=== PATIENT | male | born 1955 | race Caucasian/White ===

== ENCOUNTER → 2024-01-28 | Outpatient (CLI) | payer OTHER, SELFPAY ==
[2024-01-28 13:48] LABS: Basophils % (Auto) 0 % (0-2.5); Eosinophils # (Auto) 0.2 Thou/mm3 (0.0-0.5); Eosinophils % (Auto) 2 % (0-10); Hematocrit 46.4 % (41.0-53.0); Hemoglobin 15.2 g/dL (13.5-16.0); Immature Granulocytes % (Auto) 1 % (0-0); Immature Granulocytes Auto 0.07 Thou/mm3 (0.00-0.00); Lymphocytes # (Auto) 1.3 Thou/mm3 (1.0-4.8); Lymphocytes % (Auto) 14 % (10-50); Mean Corpuscular HGB Conc 32.8 g/dl (31.0-37.0); Mean Corpuscular Hemoglobin 29.3 pg (25.0-35.0); Mean Corpuscular Volume 89 fL (80-100); Monocytes # (Auto) 0.7 Thou/mm3 (0.0-0.8); Monocytes % (Auto) 7 % (0-12); Neutrophils # (Auto) 7.3 Thou/mm3 (1.8-7.7); Neutrophils % (Auto) 76 % (37-80); Nucleated Red Blood Cell % 0 /100 WBC (0); Platelet Count 184 Thou/mm3 (140-440); RDW Standard Deviation 46.5 fL (35.1-43.9); Red Blood Count 5.19 Miln/mm3 (4.50-5.90); White Blood Count 9.5 Thou/mm3 (3.8-10.6)
[2024-01-28 13:58] LABS: Glucose Estimated Average 108 mg/dL (80-131); Hemoglobin A1C 5.4 % Hgb (4.8-6.0)
[2024-01-28 14:30] LABS: Alanine Aminotransferase 11 U/L (10-49); Albumin, Serum 4.3 gm/dL (3.4-4.8); Albumin/Globulin Ratio 1.7 (1.2-2.2); Alkaline Phosphatase 172 U/L (46-116); Anion Gap 5 (7-16); Aspartate Amino Transferase 20 U/L (0-34); BUN/Creatinine Ratio 16 Ratio (12-20); Bilirubin,Total 0.8 mg/dL (0.3-1.2); Blood Urea Nitrogen 16 mg/dL (9-23); Calcium 9.6 mg/dL (8.3-10.6); Calcium (Corrected) 9.6 mg/dL (8.5-10.1); Carbon Dioxide 28.1 mMol/L (20.0-31.0); Cardiac Risk Estimate 3.6 RATIO (4.0-6.7); Chloride 106 mMol/L (98-107); Cholesterol 156 mg/dL (132-200); Free T4 (Free Thyroxine) 1.08 ng/dL (0.89-1.76); Globulin 2.6 gm/dL (2.3-3.5); Glucose 97 mg/dL (74-106); HDL Cholesterol 43 mg/dL (40-60); LDL Cholesterol,Calculated 87 mg/dL (0-130); Osmolality,Calculated 278 (275-295); Potassium 4.2 mMol/L (3.4-5.1); Sodium 139 mMol/L (136-145); Thyroid Stimulating Hormone 3.59 uIU/mL (0.55-4.78); Total Protein 6.9 gm/dL (5.7-8.2); Triglycerides 130 mg/dL (30-150); eGFR > 60 See Note
== END | disposition home or self-care (01) ==
LOC: COPL 12:59
PROVIDERS: PCP Registered Nurse Community Health; Referring Provider Registered Nurse Community Health; Visit Provider Registered Nurse Community Health
DX: E78.2 Mixed hyperlipidemia (principal); I10 Essential (primary) hypertension; I63.9 Cerebral infarction, unspecified
CPT/HCPCS: 36415; 80053; 80061; 83036; 84439; 84443; 85025

== ENCOUNTER 2024-08-06 23:09 | Emergency (ER) | payer OTHER, MEDICAID, SELFPAY ==
[2024-08-06 23:14] VITALS: BP 110/72; PULSE 99; RESP 20; TEMP 36.8; O2SAT 96
[2024-08-06 23:40] VITALS: PULSE 100; RESP 18; O2SAT 93
[2024-08-06 23:45] VITALS: BMI 35.3
--- NOTE | 2024-08-07 00:46 | XR_ITS ---
Examination: AP chest single view Technique 1 portable sitting AP chest single view Date and time: August 07, 2024 0105 hours Comparison July 15, 2022 Medications 1 onset chest pain today. FINDINGS: Mild pneumonia medial right base and lateral left base Mild prominence left ventricle Moderate vascular congestion Moderate osteopenia IMPRESSION: Mild bibasilar pneumonia
[2024-08-07 01:00] LABS: Basophils % (Auto) 0 % (0-2.5); Eosinophils # (Auto) 0.3 Thou/mm3 (0.0-0.5); Eosinophils % (Auto) 2 % (0-10); Hematocrit 39.8 % (41.0-53.0); Hemoglobin 13.6 g/dL (13.5-16.0); Immature Granulocytes % (Auto) 0 % (0-0); Immature Granulocytes Auto 0.04 Thou/mm3 (0.00-0.00); Lymphocytes # (Auto) 1.4 Thou/mm3 (1.0-4.8); Lymphocytes % (Auto) 14 % (10-50); Mean Corpuscular HGB Conc 34.2 g/dl (31.0-37.0); Mean Corpuscular Hemoglobin 29.2 pg (25.0-35.0); Mean Corpuscular Volume 85 fL (80-100); Monocytes # (Auto) 0.7 Thou/mm3 (0.0-0.8); Monocytes % (Auto) 7 % (0-12); Neutrophils # (Auto) 7.8 Thou/mm3 (1.8-7.7); Neutrophils % (Auto) 77 % (37-80); Nucleated Red Blood Cell % 0 /100 WBC (0); Platelet Count 168 Thou/mm3 (140-440); RDW Standard Deviation 44.5 fL (35.1-43.9); Red Blood Count 4.66 Miln/mm3 (4.50-5.90); White Blood Count 10.2 Thou/mm3 (3.8-10.6)
[2024-08-07 01:15] LABS: Partial Thromboplastin Time 24.5 Seconds (22.0-36.0)
--- NOTE | 2024-08-07 01:22 | PD.EDARRY ---
ED Arrhythmia Palp. RME/HPI General Chief Complaint: Arrhythmia/Palpitations Stated Complaint: PALPATATIONS Time Seen by Provider: 08/06/24 23:53 Arrival date/time: 08/06/24 23:09 Limitations: no limitations RME / HPI RME / HPI narrative: Dr. Matthews's Main ED Evaluation: 68yo male with a history of COPD, NM, HTN, HLD, CAD s/p 6 stents placed BIBA from home presents to the ED for a chief complaint of palpitations. Patient states he woke up having palpitations that lasted for 15 minutes. Patient states his palpitations resolved after he took 2 tablets of nitroglycerin. Patient denies any chest pain, shortness of breath, fever, chills or any other associated symptoms. Patient is not on any oxygen at home. NKA. Related Data Home Medications ?Medication ?Instructions ?Recorded ?Confirmed atorvastatin 80 mg tablet 80 mg PO QDAY 10/11/17 09/06/23 clopidogrel 75 mg tablet 75 mg PO QDAY 10/11/17 09/06/23 aspirin 325 mg tablet 325 mg PO QDAY 04/21/19 09/06/23 multivitamin-ferrous 1 tab PO QDAY 05/01/19 09/06/23 fumarate-folic acid 18 mg-400 mcg tablet (Centrum) zinc 50 mg tablet 50 mg PO QDAY 05/01/19 09/06/23 montelukast 10 mg tablet 10 mg PO QDAY 04/06/20 09/06/23 (Singulair) bisacodyl 5 mg tablet 5 mg PO HS 07/04/21 09/06/23 cholecalciferol (vitamin D3) 25 25 mcg PO QDAY 07/04/21 09/06/23 mcg (1,000 unit) capsule (Vitamin D3) diphenhydramine HCl 25 mg capsule 25 mg PO HS 07/04/21 09/06/23 (Benadryl) nitroglycerin 0.4 mg sublingual 0.4 mg buccal Q15MIN PRN Chest Pain 07/04/21 09/06/23 tablet pantoprazole 40 mg tablet,delayed 40 mg PO DAILY 07/04/21 09/06/23 release sucralfate 1 gram tablet 1 g PO BID 07/04/21 09/06/23 budesonide-formoterol HFA 80 1 puff inhalation BID PRN ASTHMA 04/11/22 09/06/23 mcg-4.5 mcg/actuation aerosol inhaler (Symbicort) carbidopa ER 50 mg-levodopa 200 mg 1 tab PO TID 04/11/22 09/06/23 tablet,extended release memantine 5 mg tablet 5 mg PO BID 04/11/22 09/06/23 ropinirole 2 mg tablet 2 mg PO BID 04/11/22 09/06/23 finasteride 5 mg tablet 5 mg PO QDAY 09/06/23 09/06/23 tamsulosin 0.4 mg capsule 0.4 mg PO QHS 09/06/23 09/06/23 Allergies Allergy/AdvReac Type Severity Reaction Status Date / Time No Known Allergies Allergy Verified 09/06/23 10:17 Review of Systems Review of Systems Systems Reviewed: All systems reviewed, normal except as documented Past Medical History Past Medical History NEUROLOGIC: Positive Neurological Disorders, Transient Ischemic Attacks (TIA), Dementia, Parkinson's Disease, Seizures, Migraine and Head Trauma; Negative Cerebrovascular Accident, Alzheimer's Disease, Brain Tumor, Meningitis, Epilepsy, Multiple Sclerosis, Cerebral Palsy, Amyotrophic Lateral Sclerosis (ALS/Bhakti Gehrig's), Guillain-[place] Syndrome, Spina Bifida, Paralysis, Peripheral Neuropathy, Gilbert's Palsy, Subdural Hematoma, Spinal Cord Injury or Traumatic Brain Injury CARDIAC: Positive Cardiac Disorders, Myocardial Infarction, Cardiac Arrhythmia, Angina, Coronary Artery Disease, Hypercholesterolemia, Edema and Hypertension; Negative Atrial Fibrillation, Peripheral Vascular Disease, Aneurysm, Congestive Heart Failure, Congenital Heart Disease, Valvular Heart Disease, Rheumatic Fever, Cardiomyopathy, Pericarditis, Cellulitis, Deep Vein Thrombosis, Hypotension or Varicose Veins RESPIRATORY: Positive Chronic Obstructive Pulmonary Disease (COPD) and Asthma; Negative Bronchitis, Emphysema, Pneumonia, Pulmonary Fibrosis, Cystic Fibrosis, Tuberculosis, Pulmonary Embolism, Pulmonary Edema or Sleep Apnea GASTROINTESTINAL: Positive Gastrointestinal Disorders and Obesity; Negative Hepatitis, Cirrhosis, Pancreatitis, Celiac Disease, Gall Bladder Disease, Gastrointestinal Bleed, Esophageal Varices, Dwyer's Esophagus, Colitis, Ulcerative Colitis, Diverticulitis, Diverticulosis, Ulcer, Irritable Bowel, Crohn's Disease, Obstructive Bowel, Hiatal Hernia, Hemorrhoids, Gastroesophageal Reflux Disease or Polyps GENITOURINARY: Positive Benign Prostatic Hyperplasia; Negative Genitourinary Disorders, Chronic Kidney Disease, Renal Disease, Kidney Stones, Polycystic Kidney Disease, Neurogenic Bladder, Inguinal Hernia or Dialysis REPRODUCTIVE: Negative Testicular Cancer MUSCULOSKELETAL: Positive Musculoskeletal Disorders, Arthritis and Fractures (pelvic); Negative Osteoporosis, Degenerative Disk Disease, Gout, Scoliosis, Fibromyalgia, Degenerative Joint Disease, Osteomyelitis or Poliovirus ENT: Positive Head Trauma; Negative Cataracts, Glaucoma or Deafness ENDOCRINE: Negative Endocrine Disorders, Diabetes Mellitus Type 1 or Diabetes Mellitus Type 2 HEMATOLOGIC: Negative Blood Disorders PSYCHO/SOCIAL: Positive Depression OTHER HISTORY: Positive Falls, MRSA and Chicken Pox; Negative Hospitalization (30 years ago, hospitalized for propane gas poisoning.), Autoimmune Disease, Down Syndrome, Developmental Delay, Shingles, Blood Transfusions, Blood Transfusion Reaction, Anesthesia Reactions, Chemotherapy, Radiation Therapy, Human Immunodeficiency Virus (HIV), Measles, Mumps, Rubella (Faroese Measles), Pertussis, Clostridium Difficile, Cancer or Testicular Cancer Family History FAMILY HISTORY: Positive Family Cardiac Disorders, Family Gastrointestinal Problems, Family Cancer and Family Surgery; Negative Family Psychiatric Problems, Family Respiratory Disorders or Family Anesthesia Reaction Surgical History SURGICAL: Positive Cardiac Surgery, Coronary Stent (X6), Angiogram, Tonsillectomy and Abdominal Surgery; Negative Pacemaker, Endocrine Surgery, Ear Surgery, Joint Replacement, Neurologic Surgery or Vasectomy Social History SMOKING STATUS: Never smoker SUBSTANCE USE: does not use ED Exam General Limitations: Present no limitations General appearance: Present alert and in no apparent distress Head Head exam: Present atraumatic Eye Eye exam: Present normal appearance, PERRL and EOMI ENT ENT exam: Present normal exam, normal oropharynx and mucous membranes moist Neck Neck exam: Present normal inspection, full ROM and trachea midline Chest Chest inspection: Present normal inspection and symmetric chest wall rise Respiratory Respiratory exam: Present other (mildly decreased air movement, no rales); Absent wheezes Cardiovascular Cardiovascular exam: Present regular rate, normal rhythm and normal heart sounds Abdominal Exam Abdominal exam: Present soft and normal bowel sounds Extremities Exam Extremities exam: Present normal inspection and full ROM Back Exam Back exam: Present normal inspection and full ROM Neurological Exam Neurological exam: Present alert, oriented X3 and CN II-XII intact Psychiatric Psychiatric exam: Present normal affect and normal mood Skin Skin exam: Present warm, dry, intact and normal color Course Course Course Narrative: CXR is ordered for determining the etiology of palpitations. Quality Measures none Orders Category Date Time Status [facility] STAT Care 08/07/24 00:46 Active Continuous Pulse Oximetry ONCE Care 08/07/24 00:46 Active EKG (ED ONLY) *Do not use* NOW Care 08/06/24 23:49 Completed Insert IV STAT Care 08/07/24 00:46 Active Urinary Catheter STAT Care 08/07/24 00:46 Active EKG (ED Only) Stat Exams 08/06/24 23:49 Ordered XR chest 1V portable Stat Exams 08/07/24 00:46 Taken B-Type Natriuretic Peptide Stat Lab 08/07/24 00:49 Received CBC Stat Lab 08/07/24 00:49 Completed Comprehensive Metabolic Panel Stat Lab 08/07/24 00:49 Received Lipase Stat Lab 08/07/24 00:49 Received Magnesium Stat Lab 08/07/24 00:49 Received Partial Thromboplastin Time Stat Lab 08/07/24 00:49 Completed Prothrombin Time with INR Stat Lab 08/07/24 00:49 Completed Troponin I Stat Lab 08/07/24 00:49 Received Oxygen Delivery NOW RT 08/07/24 00:46 Active Vital Signs Vital signs: Vital Signs Temperature 98.3 F 08/06/24 23:14 Pulse Rate 99 08/06/24 23:14 Respiratory Rate 20 08/06/24 23:14 Blood Pressure 110/72 08/06/24 23:14 Pulse Oximetry (%) 96 08/06/24 23:14 Oxygen Delivery Method Room Air 08/06/24 23:14 Arrhythmia/Palpitations MDM Narrative MDM Narrative:: Scribe Attestation: 08/07/24 Swapna Spears am scribing for and in the presence of Dr. Matthews. Patient data External records reviewed:: [facility] previous records (Per chart review, patient was admitted here on 10/18/21 for chest pain.) Clinical information provided by:: patient Social determinants that could affect healthcare access:: none Patient has the following chronic illnesses:: COPD, NM, HTN, HLD, CAD s/p 6 stents placed How is presenting disease/condition affected by chronic disease/condition?: exacerbated by Evaluation data The following diagnostics were reviewed and interpreted by me:: lab results, radiology exam(s) and EKG tracing(s) Lab and/or radiology exams considered but not ordered:: none Interpretation Summary: CBC is normal, PT and INR are normal, PTT is normal, CMP is normal, Initial and Repeat Troponins are normal, according to my interpretation. CXR shows atelectasis versus small left pleural effusion, no cardiomegaly, no infiltrates, according to my interpretation. EKG done at 2310, sinus tachycardia, rate of 100, ND interval: 144, QTc: 401, no STEMI, according to my interpretation. Medications / Prescriptions Medications or Prescriptions considered but not ordered:: none Medication administrations:: none Consultations Consultation(s) initiated? (list below): No Diagnosis Differential diagnosis arrhythmia/palpitations: palpitations, sinus tachycardia, artial fibrillation and artial flutter Most likely diagnosis given after review of the tests above:: see clinical impression below Admission Indicated Admission indicated?: not indicated Admission Request Was there a request for admission?: No Disposition Plan Disposition Plan: Discharge Discharge Attestation Discharge Attestation: The patient and all family members were given an opportunity to ask questions and understood the discharge instructions. Discharge instructions specifically effects, indications for sooner follow up or return to the emergency department, and the expected course of current diagnosis. Patient condition: Stable Discharge Plan Plan Patient Disposition: HOME (Self Care) Patient condition on transfer: Stable Prescriptions/Referrals Prescriptions/Med Rec: No Action tamsulosin 0.4 mg capsule 0.4 mg PO QHS finasteride 5 mg tablet 5 mg PO QDAY aspirin 325 mg tablet 325 mg PO QDAY sucralfate 1 gram tablet 1 g PO BID Patient Comments: TAKE ONE TABLET BY MOUTH ON an EMPTY stomach TWICE DAILY pantoprazole 40 mg tablet,delayed release (DR/EC) 40 mg PO DAILY Patient Comments: TAKE ONE TABLET BY MOUTH EVERY DAY diphenhydramine HCl [Benadryl] 25 mg Capsule 25 mg PO HS nitroglycerin 0.4 mg tablet, sublingual 0.4 mg BUCCAL Q15MIN PRN (Reason: Chest Pain) Patient Comments: DISSOLVE 1 TABLET UNDER THE TONGUE EVERY 5 MINUTES UP TO THREE DOSES NEEDED FOR CHEST PAIN. CALL 911 IF NO RELIEF bisacodyl 5 mg Tablet 5 mg PO HS cholecalciferol (vitamin D3) [Vitamin D3] 25 mcg (1,000 unit) Capsule 25 mcg PO QDAY atorvastatin 80 mg Tablet 80 mg PO QDAY clopidogrel 75 mg Tablet 75 mg PO QDAY zinc 50 mg Tablet 50 mg PO QDAY Centrum 18-400 mg-mcg Tablet 1 tab PO QDAY montelukast [Singulair] 10 mg Tablet 10 mg PO QDAY carbidopa-levodopa 50-200 mg tablet extended release 1 tab PO TID Patient Comments: TAKE ONE TABLET BY MOUTH THREE TIMES DAILY ropinirole 2 mg tablet 2 mg PO BID memantine 5 mg tablet 5 mg PO BID Patient Comments: TAKE ONE TABLET BY MOUTH FOR ONE WEEK THEN TAKE ONE TABLET TWICE DAILY budesonide-formoterol [Symbicort] 80-4.5 mcg/actuation HFA aerosol inhaler 1 puff INHALATION BID PRN (Reason: ASTHMA) Referrals: Lorin Alicia FNP [Primary Care Provider] - In 1 week Problem List Clinical Impression: Palpitations Patient/Caregiver Discharge Instructions Education Materials: ED Palpitations Additional Instructions: Follow-up with your primary care provider in the next 48-72 hours. Return to the ED for any worsening symptoms or as needed. Print Language: Thai Stand Alone Forms: [employer] Info., Patient Portal Info Letter
[2024-08-07 01:24] LABS: B-Type Natriuretic Peptide < 20 pg/mL (0-100)
[2024-08-07 01:37] LABS: Alanine Aminotransferase < 7 U/L (10-49); Albumin, Serum 3.7 gm/dL (3.4-4.8); Albumin/Globulin Ratio 1.5 (1.2-2.2); Alkaline Phosphatase 140 U/L (46-116); Anion Gap 10 (7-16); Aspartate Amino Transferase 23 U/L (0-34); BUN/Creatinine Ratio 13 Ratio (12-20); Bilirubin,Total 0.6 mg/dL (0.3-1.2); Blood Urea Nitrogen 13 mg/dL (9-23); Calcium 8.7 mg/dL (8.3-10.6); Calcium (Corrected) 8.9 mg/dL (8.5-10.1); Carbon Dioxide 26.5 mMol/L (20.0-31.0); Chloride 108 mMol/L (98-107); Estimated Creatinine Clearance 87.2 mL/min (>60); Globulin 2.5 gm/dL (2.3-3.5); Glucose 116 mg/dL (74-106); Lipase 38 U/L (12-53); Osmolality,Calculated 287 (275-295); Potassium 3.7 mMol/L (3.4-5.1); Sodium 144 mMol/L (136-145); Total Protein 6.2 gm/dL (5.7-8.2); Troponin I < 0.002 ng/mL (0.0-0.045); eGFR > 60 See Note
[2024-08-07 03:42] VITALS: BP 115/79; PULSE 75; RESP 20; TEMP 36.8; O2SAT 96
[2024-08-07 03:51] LABS: Troponin I < 0.002 ng/mL (0.0-0.045)
== END 2024-08-07 06:04 | disposition home or self-care (01) ==
PROVIDERS: Emergency Provider Emergency Medicine; PCP Registered Nurse Community Health
DX: R00.2 Palpitations (principal); R07.9 Chest pain, unspecified; R00.0 Tachycardia, unspecified; I10 Essential (primary) hypertension; I25.2 Old myocardial infarction; I25.10 Atherosclerotic heart disease of native coronary artery without angina pectoris; E78.00 Pure hypercholesterolemia, unspecified; Z95.5 Presence of coronary angioplasty implant and graft
CPT/HCPCS: 36415; 71045; 80053; 83690; 83735; 83880; 84484; 85025; 85610; 85730; 93005; 99283

== ENCOUNTER → 2024-09-01 | Outpatient (BNVA) | payer MEDICARE, MEDICAID, SELFPAY | END | disposition home or self-care (01) | PROVIDERS: PCP Registered Nurse Community Health; Referring Provider Registered Nurse Community Health; Visit Provider Urology | DX: N40.1 Benign prostatic hyperplasia with lower urinary tract symptoms (principal); N13.8 Other obstructive and reflux uropathy; Z87.442 Personal history of urinary calculi; I25.10 Atherosclerotic heart disease of native coronary artery without angina pectoris; Z95.5 Presence of coronary angioplasty implant and graft; N31.9 Neuromuscular dysfunction of bladder, unspecified; G20.C Parkinsonism, unspecified; Z99.3 Dependence on wheelchair; I25.2 Old myocardial infarction; E66.9 Obesity, unspecified; Z68.33 Body mass index [BMI] 33.0-33.9, adult | CPT/HCPCS: 81003; 99212; G0463 ==